=== PATIENT | male | born 1980 | race Caucasian/White ===

== ENCOUNTER 2017-06-09 01:11 | Emergency (ER) | payer OTHER ==
[2017-06-09] MEDS ORDERED: METOCLOPRAMIDE HCL INJ/PF 10 MG/2 ML SDV IV ONE (02:23)
[2017-06-09] MEDS ORDERED: MORPHINE SULFATE 10 MG/ML INJ ONE (02:23)
[2017-06-09] MEDS ORDERED: ONDANSETRON HCL INJ/PF 4 MG/2 ML SDV ONE (02:23)
[2017-06-09] MEDS ORDERED: FAMOTIDINE INJ/PF 20 MG/2 ML SDV IV ONE (02:23)
[2017-06-09] MEDS ORDERED: METOCLOPRAMIDE HCL INJ/PF 10 MG/2 ML SDV ONE (02:24)
[2017-06-09] MEDS ORDERED: NORMAL SALINE 1000 ML 1,000 ML IV ONE ×2 (02:25→02:59)
[2017-06-09] MEDS ORDERED: MORPHINE SULFATE 10 MG/ML INJ IV ONE (02:37)
[2017-06-09] MEDS ORDERED: ONDANSETRON HCL INJ/PF 4 MG/2 ML SDV IV ONE (02:37)
[2017-06-09 02:40] LABS: ABSOLUTE BASOPHILS # (AUTO) 0.1 10^3/uL (0.0-0.2); ABSOLUTE EOSINOPHILS # (AUTO) 0.2 10^3/uL (0.0-0.6); ABSOLUTE LYMPHOCYTES (AUTO) 2.6 10^3/uL (0.5-4.7); ABSOLUTE MONOCYTES (AUTO) 0.6 10^3/uL (0.1-1.4); ABSOLUTE NEUT (AUTO) 7.9 10^3/uL (1.7-8.2); BASOPHILS % (AUTO) 0.4 % (0-2); EOSINOPHILS % (AUTO) 2.2 % (0-6); HEMATOCRIT 42.2 % (37.9-51.0); HEMOGLOBIN 14.5 g/dL (13.5-17.0); LYMPHOCYTES % (AUTO) 22.7 % (13-45); MEAN CORPUSCULAR HEMOGLOBIN 29.3 pg (27.0-33.4); MEAN CORPUSCULAR HGB CONC 34.5 g/dL (32.0-36.0); MEAN CORPUSCULAR VOLUME 85 fl (80-97); PLATELET COUNT 264 10^3/uL (150-450); RED BLOOD COUNT 4.95 10^6/uL (4.35-5.55); RED CELL DISTRIBUTION WIDTH 12.6 % (11.5-14.0); SEGMENTED NEUTROPHILS % (AUTO) 69.7 % (42-78); TOTAL CELLS COUNTED % (AUTO) 100 %; WHITE BLOOD COUNT 11.4 10^3/uL (4.0-10.5)
--- NOTE | 2017-06-09 02:53 | ER Document Report ---
ED General - General Chief Complaint: Abdominal Pain Stated Complaint: ABDOMINAL PAIN Time Seen by Provider: 06/09/17 02:07 Mode of Arrival: Ambulatory Information source: Patient TRAVEL OUTSIDE OF THE [place] IN LAST 30 DAYS: No - HPI Notes: Patient is a 37-year-old male presents to the emergency department with report of a 1-1/2 month history of intermittent abdominal pain that doubles him over at times with associated nausea. The patient reports some constipation and nausea and is only vomited twice. The patient reports having a CT scan for the same pain 1 month ago which was negative and states that 2 weeks ago he had a ultrasound where he was told it was negative, but his regular practitioner could not find the full report. The patient reports no chest pain or shortness of breath or cough. The patient denies any hematemesis. He does report constipation and mild sensation of urinary retention. The patient states his abdominal pain is worse right upper quadrant but occasionally his left upper quadrant and sometimes is to the lower abdomen. The patient denies any recent medication changes, but he is on a Butrans patch for fibromyalgia. Patient is also on Ambien. Family history no known gallbladder disease. - Related Data Allergies/Adverse Reactions: No Known Allergies Allergy (Unverified 07/06/11 08:16) Past Medical History - General Information source: Patient - Social History Smoking Status: Never Smoker Chew tobacco use (# tins/day): No Frequency of alcohol use: None Drug Abuse: None Lives with: Family Family History: Reviewed & Not Pertinent Patient has suicidal ideation: No Patient has homicidal ideation: No Renal/ Medical History: Denies: Hx Peritoneal Dialysis - Immunizations Hx Diphtheria, Pertussis, Tetanus Vaccination: No Review of Systems - Review of Systems Notes: REVIEW OF SYSTEMS: CONSTITUTIONAL : Denies fever, chills, or sweats. EENT: Denies eye, ear, throat, or mouth pain or symptoms. Denies nasal or sinus congestion or discharge. Denies throat, tongue, or mouth swelling or difficulty swallowing. CARDIOVASCULAR: Denies chest pain. Denies palpitations or racing or irregular heart beat. Denies ankle edema. RESPIRATORY: Denies cough, cold, or chest congestion. Denies shortness of breath, difficulty breathing, or wheezing. GASTROINTESTINAL: Denies abdominal distention. Denies diarrhea. Denies blood in vomitus, stools, or per rectum. Denies black, tarry stools. GENITOURINARY: Denies difficulty urinating, painful urination, burning, frequency, blood in urine, or discharge. MUSCULOSKELETAL: Denies back or neck pain or stiffness. Denies joint pain or swelling. SKIN: Denies rash or lesions. HEMATOLOGIC : Denies easy bruising or bleeding. LYMPHATIC: Denies swollen, enlarged glands. NEUROLOGICAL: Denies confusion or altered mental status. Denies passing out or loss of consciousness. Denies dizziness or lightheadedness. Denies headache. Denies weakness or paralysis or loss of use of either side. Denies problems with gait or speech. Denies sensory loss, numbness, or tingling. Denies seizures. PSYCHIATRIC: Denies anxiety or stress. Denies depression, suicidal ideation, or homicidal ideation. ALL OTHER SYSTEMS REVIEWED AND NEGATIVE. Dictation was performed using [employer] voice recognition software Physical Exam - Vital signs Vitals: Temp Pulse Resp BP Pulse Ox 97.3 F 54 L 16 124/75 100 06/09/17 01:12 06/09/17 01:12 06/09/17 01:12 06/09/17 01:12 06/09/17 01:12 - Notes Notes: PHYSICAL EXAMINATION: GENERAL: Well-appearing, well-nourished and in no acute distress. HEAD: Atraumatic, normocephalic. EYES: Pupils equal round and reactive to light, extraocular movements intact, sclera anicteric, conjunctiva are normal. ENT: Nares patent, oropharynx clear without exudates. Moist mucous membranes. NECK: Normal range of motion, supple without lymphadenopathy LUNGS: Breath sounds clear to auscultation bilaterally and equal. No wheezes rales or rhonchi. HEART: Regular rate and rhythm without murmurs ABDOMEN: Slightly distended, diffusely tender, worse right upper quadrant region. No guarding, no rebound. No masses appreciated. Positive Marrero's. Musculoskeletal: Normal range of motion, no pitting or edema. No cyanosis. Pain through to the mid back region also noted. NEUROLOGICAL: Cranial nerves grossly intact. Normal speech, normal gait. Normal sensory, motor exams PSYCH: Normal mood, normal affect. SKIN: Warm, Dry, normal turgor, no rashes or lesions noted. Course - Re-evaluation Re-evalutation: 06/09/17 02:53 Patient was given normal saline bolus and was given IV Zofran, morphine, Reglan , Pepcid. Attempt was made to obtain old records from [facility] where he had his initial workup and other studies. 06/09/17 05:35 No evidence for hepatitis or pancreatitis or acute cholecystitis or urinary tract infection or GI bleed. Findings fit with a narcotic induced constipation with ileus versus early small bowel obstruction. The patient had adequate relief of his pain and nausea after medications. Repeat abdominal exam patient was nontender. Patient tolerated p.o. fluids and felt stable for discharge. Patient was given strict instructions to observe a liquid only diet and will be started on MiraLAX. He was told he may need a follow-up colonoscopy if symptoms persist. He was also told that he needed to return in case of persistent nausea or vomiting or severe pain or any fever. - Vital Signs Vital signs: Temp Pulse Resp BP Pulse Ox 97.3 F 54 L 16 124/75 100 06/09/17 01:12 06/09/17 01:12 06/09/17 01:12 06/09/17 01:12 06/09/17 01:12 - Laboratory Result Diagrams: 06/09/17 02:30 06/09/17 02:30 Laboratory results interpreted by me: 06/09/17 06/09/17 06/09/17 02:30 02:30 04:55 WBC 11.4 H BUN 23 H Urine Ketones TRACE H Discharge - Discharge Clinical Impression: Ileus Constipation Qualifiers: Constipation type: drug induced constipation Qualified Code(s): K59.03 - Drug induced constipation Vomiting Qualifiers: Vomiting type: unspecified Vomiting Intractability: non-intractable Nausea presence: with nausea Qualified Code(s): R11.2 - Nausea with vomiting, unspecified Adverse effect of narcotic Qualifiers: Encounter type: initial encounter Qualified Code(s): T40.605A - Adverse effect of unspecified narcotics, initial encounter Abdominal pain Qualifiers: Abdominal location: generalized Qualified Code(s): R10.84 - Generalized abdominal pain Condition: Stable Disposition: HOME, SELF-CARE Instructions: Bowel Obstruction ([facility]), Vomiting ([facility]), Constipation ([facility]) Additional Instructions: Drink plenty of fluids. Liquid only diet until bowels are working more appropriately. Return to the emergency department in case of persistent vomiting, worsening pain, any fever. If symptoms persist, you may need a colonoscopy. Consider cutting back on narcotic pain medications to control constipation and symptoms. Prescriptions: Ondansetron [Zofran Odt 4 mg Tablet] 1 tab PO Q8HP PRN #10 tab.rapdis PRN Reason: For Nausea/Vomiting Polyethylene Glycol 3350 [Miralax] 1 cap PO DAILY #527 powder Referrals: RUFUS RIVERA MD [Primary Care Provider] - 06/11/17
[2017-06-09 02:54] LABS: ALANINE AMINOTRANSFERASE 37 U/L (21-72); ALKALINE PHOSPHATASE 38 U/L (38-126); ANION GAP 11 (5-19); ASPARTATE AMINO TRANSFERASE 34 U/L (17-59); BILIRUBIN,DIRECT 0.4 mg/dL (0.0-0.4); BILIRUBIN,TOTAL 0.7 mg/dL (0.2-1.3); BLOOD UREA NITROGEN 23 mg/dL (7-20); CALCIUM 9.6 mg/dL (8.4-10.2); CARBON DIOXIDE 29 mmol/L (22-30); CHLORIDE 101 mmol/L (98-107); GLUCOSE 110 mg/dL (75-110); LIPASE 58.9 U/L (23-300); POTASSIUM 3.9 mmol/L (3.6-5.0); SODIUM 140.5 mmol/L (137-145); TOTAL PROTEIN 7.7 g/dL (6.3-8.2)
--- NOTE | 2017-06-09 03:38 | RADIOLOGY REPORT (SQ) ---
EXAM DESCRIPTION: CT ABDOMEN AND PELVIS WITH CONTRAST CLINICAL HISTORY: abd pain RUQ predominantly, vomiting COMPARISON: None Available. TECHNIQUE: CT of the abdomen and pelvis performed following IV administration of 89 mL of Isovue-370. Delayed images obtained. DLP: 903.75 mGycm FINDINGS: Lung Bases: The visualized lung bases are clear. Bones: No destructive bone lesions identified. Abdomen: Liver: The liver has normal size and density. No intrahepatic mass or biliary dilatation. Gallbladder: No calcified gallstones. Spleen, Pancreas, and Adrenal Glands: The spleen, pancreas, and adrenal glands are unremarkable. Kidneys: The kidneys have normal size and contour without evidence of solid mass or hydronephrosis. Vasculature: The aorta and IVC have normal caliber and position. The portal vein is patent. The proximal visceral and renal arteries are patent. Stomach: The stomach and duodenum have normal course. Other: No free intraperitoneal air. No free fluid or lymphadenopathy. Pelvis: Bladder: Urinary bladder is unremarkable. Bowel: Mildly prominent loops of small bowel with distally decompressed loops of small bowel. No well-defined transition point identified. Appendix: Normal appendix. Pelvis: Prostate is not enlarged. IMPRESSION: 1. Mildly dilated loops of small bowel with distally decompressed loops of ileum. No definite transition point identified. Differential considerations include ileus versus at least partial small bowel obstruction. Continued follow-up recommended. This exam was performed according to our departmental dose-optimization program, which includes automated exposure control, adjustment of the mA and/or kV according to patient size and/or use of iterative reconstruction technique.
[2017-06-09 05:16] LABS: APPEARANCE,URINE CLEAR; BILIRUBIN,URINE NEGATIVE (NEGATIVE); COLOR,URINE YELLOW; GLUCOSE, URINE NEGATIVE (NEGATIVE); KETONES,URINE TRACE mg/dL (NEGATIVE); LEUKOCYTE ESTERASE,URINE NEGATIVE (NEGATIVE); NITRITE,URINE NEGATIVE (NEGATIVE); PROTEIN,URINE NEGATIVE (NEGATIVE); URINE SPECIFIC GRAVITY 1.036; UROBILINOGEN,URINE NEGATIVE mg/dL (<2.0)
[2017-06-09 06:03] VITALS: BP 127/66
== END 2017-06-09 06:02 | disposition home or self-care (01) ==
LOC: ER 01:11
DX: K56.7 Ileus, unspecified (principal); K59.03 Drug induced constipation; R11.2 Nausea with vomiting, unspecified; T40.605A Adverse effect of unspecified narcotics, initial encounter; R10.84 Generalized abdominal pain; K59.00 Constipation, unspecified; R10.11 Right upper quadrant pain; R10.12 Left upper quadrant pain; R10.30 Lower abdominal pain, unspecified; Z79.899 Other long term (current) drug therapy
CPT/HCPCS: 99284; 96361; 96374; 96375; 36415; 83690; 85025; 80053; 81001; 74177; J2765; J2270; J2405; J7030; S0028

== ENCOUNTER 2017-08-19 01:38 | Emergency (ER) | payer OTHER ==
--- NOTE | 2017-08-19 02:00 | RADIOLOGY REPORT (SQ) ---
EXAM DESCRIPTION: XR FINGERS COMPLETED DATE/TME: 08/19/2017 00:00 CLINICAL HISTORY: 37 years, Male, Pain s/p injury COMPARISON: None. FINDINGS: Single view of the hand and 2 views of the right second digit. No acute fracture or dislocation. No radiopaque foreign body identified. Normal osseous mineralization. IMPRESSION: No acute fracture or dislocation. 2011 [facility] [employer]- All Rights Reserved
[2017-08-19 02:07] VITALS: BP 121/74
--- NOTE | 2017-08-19 02:57 | ER Document Report ---
ED General - General Chief Complaint: Finger Injury Stated Complaint: FINGER INJURY Time Seen by Provider: 08/19/17 02:40 Notes: Patient is a 29-year-old male who presents with complaint of a cut the dorsum of his right second digit after a close car door. He initially had pain but says he no longer has pain. X-ray was ordered in triage and is negative. He says he is has had a tetanus shot within the last 5 years. He has no chronic medical problems and is otherwise healthy. He has no other complaints at this time. TRAVEL OUTSIDE OF THE [place] IN LAST 30 DAYS: No - Related Data Allergies/Adverse Reactions: No Known Allergies Allergy (Unverified 07/06/11 08:16) Past Medical History - Social History Smoking Status: Unknown if Ever Smoked Frequency of alcohol use: None Drug Abuse: None Family History: Reviewed & Not Pertinent Patient has suicidal ideation: No Patient has homicidal ideation: No Renal/ Medical History: Denies: Hx Peritoneal Dialysis - Immunizations Hx Diphtheria, Pertussis, Tetanus Vaccination: No Review of Systems - Review of Systems Notes: My Normal Review Basic REVIEW OF SYSTEMS: CONSTITUTIONAL : Denies fever, chills, or sweats. Denies recent illness. MUSCULOSKELETAL: Right second digit laceration. SKIN: Denies rash or skin lesions. HEMATOLOGIC : Denies easy bruising or bleeding. LYMPHATIC: Denies swollen, enlarged glands. NEUROLOGICAL: Denies sensory or motor loss. ALL OTHER SYSTEMS REVIEWED AND NEGATIVE. Physical Exam - Vital signs Vitals: Temp Pulse Resp BP Pulse Ox 98.0 F 62 18 121/74 100 08/19/17 02:05 08/19/17 02:05 08/19/17 02:05 08/19/17 02:05 08/19/17 02:05 - Notes Notes: General Appearance: Well nourished, alert, cooperative, no acute distress, no obvious discomfort. Well-appearing. Vitals: reviewed, See vital signs table. Extremities: strength 5/5 in all extremities, good pulses in all extremities, good capillary refill. Patient does have a laceration is proximately 2 cm in length on the dorsum of the right second digit. No active bleeding at this time. No redness or swelling around the area. Distal sensation is intact. Patient is able flex the finger but has some pain in doing so and therefore flexion is limited. Patient is able have the finger extended. Laceration is over the extensor surface. Skin: warm, dry, appropriate color, no rash Neuro: speech clear, oriented x 3, normal affect, responds appropriately to questions. Course - Re-evaluation Re-evalutation: 08/19/17 03:02 I placed Dermabond over the cut after cleaning it with peroxide. Patient tolerated this well. He has no complaints looks well. Triage note mentions patient is worried about some numbness in his finger. On my exam patient had good distal sensation throughout the finger. Informed patient to keep the finger covered when working. I informed him otherwise keep it open to air. I encouraged her return to ER immediately if has any redness or swelling or signs of infection. Patient agrees with plan will be discharged home. Dictation of this chart was performed using voice recognition software; therefore, there may be some unintended grammatical errors. - Vital Signs Vital signs: Temp Pulse Resp BP Pulse Ox 98.0 F 62 18 121/74 100 08/19/17 02:05 08/19/17 02:05 08/19/17 02:05 08/19/17 02:05 08/19/17 02:05 Procedures - Laceration/Wound Repair right 2nd digit Wound length (cm): 2 Wound's Depth, Shape: Linear Laceration pre-procedure: Other - peroxide Wound explored: Clean Wound Repaired With: Dermabond Discharge - Discharge Clinical Impression: Finger laceration Qualifiers: Encounter type: initial encounter Finger: index finger Damage to nail status: without damage Foreign body presence: without foreign body Laterality: right Qualified Code(s): S61.210A - Laceration without foreign body of right index finger without damage to nail, initial encounter Condition: Good Disposition: HOME, SELF-CARE Additional Instructions: Please wait 24 hours before cleaning wound with soap and water. Please than just gently clean with soap and water twice a day. Please return to the ER immediately if you develop redness or swelling in the finger, fevers, or feel unwell. Referrals: RUFUS RIVERA MD [Primary Care Provider] - Follow up as needed
== END 2017-08-19 03:15 | disposition home or self-care (01) ==
LOC: ER 01:38
DX: S61.210A Laceration without foreign body of right index finger without damage to nail, initial encounter (principal); R20.0 Anesthesia of skin; W23.0XXA Caught, crushed, jammed, or pinched between moving objects, initial encounter
CPT/HCPCS: 99283

== ENCOUNTER 2017-11-03 20:53 | Emergency (ER) | payer OTHER ==
[2017-11-03] MEDS ORDERED: NORMAL SALINE 1000 ML 1,000 ML IV ONE (22:09)
[2017-11-03] MEDS ORDERED: ONDANSETRON 4 MG TAB.RAPDIS PO ONE (22:09)
--- NOTE | 2017-11-03 22:11 | ER Document Report ---
ED Medical Screen (RME) - General Chief Complaint: Abdominal Pain Stated Complaint: ABDOMINAL PAIN Time Seen by Provider: 11/03/17 22:05 Mode of Arrival: Ambulatory Information source: Patient Notes: Patient is a 37-year-old male who presents with chief complaint of abdominal pain with vomiting onset about 6:00 tonight after eating dinner. Patient denies any history of any abdominal surgeries. Patient actively vomiting during triage. Exam: Generalized tenderness to palpation to the entire abdomen. I have greeted and performed a rapid initial assessment of this patient. A comprehensive ED assessment and evaluation of the patient, analysis of test results and completion of the medical decision making process will be conducted by additional ED providers. Dictation of this chart was performed using voice recognition software; therefore, there may be some unintended grammatical errors. TRAVEL OUTSIDE OF THE [place] IN LAST 30 DAYS: No - Related Data Allergies/Adverse Reactions: No Known Allergies Allergy (Unverified 07/06/11 08:16) Past Medical History - Social History Frequency of alcohol use: None Drug Abuse: None Renal/ Medical History: Denies: Hx Peritoneal Dialysis - Immunizations Hx Diphtheria, Pertussis, Tetanus Vaccination: No Physical Exam - Vital signs Vitals: Temp Pulse BP Pulse Ox 97.6 F 55 L 105/59 L 100 11/03/17 21:01 11/03/17 21:01 11/03/17 21:01 11/03/17 21:01 Course - Vital Signs Vital signs: Temp Pulse Resp BP Pulse Ox 97.6 F 55 L 105/59 L 100 11/03/17 21:01 11/03/17 21:01 11/03/17 21:01 11/03/17 21:01 Doctor's Discharge - Discharge Referrals: RUFUS RIVERA MD [Primary Care Provider] - Follow up as needed
[2017-11-03 22:39] LABS: ABSOLUTE EOSINOPHILS # (AUTO) 0.2 10^3/uL (0.0-0.6); ABSOLUTE LYMPHOCYTES (AUTO) 1.3 10^3/uL (0.5-4.7); ABSOLUTE MONOCYTES (AUTO) 0.5 10^3/uL (0.1-1.4); ABSOLUTE NEUT (AUTO) 10.1 10^3/uL (1.7-8.2); BASOPHILS % (AUTO) 0.1 % (0-2); EOSINOPHILS % (AUTO) 1.5 % (0-6); HEMATOCRIT 39.3 % (37.9-51.0); HEMOGLOBIN 13.4 g/dL (13.5-17.0); LYMPHOCYTES % (AUTO) 10.4 % (13-45); MEAN CORPUSCULAR HEMOGLOBIN 29.5 pg (27.0-33.4); MEAN CORPUSCULAR HGB CONC 34.1 g/dL (32.0-36.0); MEAN CORPUSCULAR VOLUME 87 fl (80-97); MONOCYTES % (AUTO) 4.1 % (3-13); PLATELET COUNT 241 10^3/uL (150-450); RED BLOOD COUNT 4.54 10^6/uL (4.35-5.55); RED CELL DISTRIBUTION WIDTH 13.3 % (11.5-14.0); SEGMENTED NEUTROPHILS % (AUTO) 83.9 % (42-78); TOTAL CELLS COUNTED % (AUTO) 100 %; WHITE BLOOD COUNT 12.1 10^3/uL (4.0-10.5)
[2017-11-03 23:04] LABS: ALANINE AMINOTRANSFERASE 44 U/L (21-72); ALBUMIN 3.8 g/dL (3.5-5.0); ALKALINE PHOSPHATASE 32 U/L (38-126); ANION GAP 7 (5-19); ASPARTATE AMINO TRANSFERASE 40 U/L (17-59); BILIRUBIN,DIRECT 0.2 mg/dL (0.0-0.4); BILIRUBIN,TOTAL 0.4 mg/dL (0.2-1.3); BLOOD UREA NITROGEN 19 mg/dL (7-20); CALCIUM 8.8 mg/dL (8.4-10.2); CARBON DIOXIDE 31 mmol/L (22-30); CHLORIDE 105 mmol/L (98-107); GLUCOSE 107 mg/dL (75-110); LIPASE 43.8 U/L (23-300); POTASSIUM 4.2 mmol/L (3.6-5.0); SODIUM 142.9 mmol/L (137-145); TOTAL PROTEIN 6.3 g/dL (6.3-8.2)
[2017-11-04 00:17] LABS: APPEARANCE,URINE CLEAR; BILIRUBIN,URINE NEGATIVE (NEGATIVE); COLOR,URINE YELLOW; GLUCOSE, URINE NEGATIVE (NEGATIVE); KETONES,URINE NEGATIVE (NEGATIVE); LEUKOCYTE ESTERASE,URINE NEGATIVE (NEGATIVE); NITRITE,URINE NEGATIVE (NEGATIVE); PROTEIN,URINE NEGATIVE (NEGATIVE); URINE SPECIFIC GRAVITY 1.024
--- NOTE | 2017-11-04 00:24 | ER Document Report ---
ED General - General Mode of Arrival: Ambulatory Information source: Patient TRAVEL OUTSIDE OF THE [place] IN LAST 30 DAYS: No <IAN CHACON - Last Filed: 11/04/17 04:35> <LEMUEL PEARL - Last Filed: 11/04/17 04:56> - General Chief Complaint: Abdominal Pain Stated Complaint: ABDOMINAL PAIN Time Seen by Provider: 11/03/17 22:05 Notes: Patient is a 37 year old male presenting to the emergency department complaining of abdominal pain onset yesterday. Patient states he was looking for his brother all day today and did not eat anything for most of the day. He states when he was able to eat, he indulged in a copious amount of food further stating he feels this caused his abdominal pain. He states he has a history of constipation so he took an probiotic and MiraLax and his pain significantly increased shortly after taking the MiraLax. At bedside, patient states he feels a lot better after having vomited once. Patient denies diarrhea or dysuria. Patient states he did have a small bowel movement yesterday morning. (IAN CHACON) - Related Data Allergies/Adverse Reactions: No Known Allergies Allergy (Unverified 07/06/11 08:16) Past Medical History - General Information source: Patient - Social History Smoking Status: Never Smoker Frequency of alcohol use: None Drug Abuse: None Family History: Reviewed & Not Pertinent Patient has suicidal ideation: No Patient has homicidal ideation: No Renal/ Medical History: Denies: Hx Peritoneal Dialysis - Immunizations Hx Diphtheria, Pertussis, Tetanus Vaccination: No <IAN CHACON - Last Filed: 11/04/17 04:35> Review of Systems - Review of Systems Constitutional: No symptoms reported EENT: No symptoms reported Cardiovascular: No symptoms reported Respiratory: No symptoms reported Gastrointestinal: See HPI, Abdominal pain, Vomiting Genitourinary: No symptoms reported Male Genitourinary: No symptoms reported Musculoskeletal: No symptoms reported Skin: No symptoms reported Hematologic/Lymphatic: No symptoms reported Neurological/Psychological: No symptoms reported -: Yes All other systems reviewed and negative <IAN CHACON - Last Filed: 11/04/17 04:35> Physical Exam - Vital signs Interpretation: Normal - General General appearance: Alert In distress: Mild - dry heaving - HEENT Head: Normocephalic, Atraumatic Eyes: Normal Pupils: PERRL Mucous membranes: Dry - Respiratory Respiratory status: No respiratory distress Chest status: Nontender Breath sounds: Normal Chest palpation: Normal - Cardiovascular Rhythm: Regular Heart sounds: Normal auscultation Murmur: No - Abdominal Inspection: Normal Distension: No distension Bowel sounds: Normal Tenderness: Tender - mild epigastric Organomegaly: No organomegaly - Back Back: Normal, Nontender - Extremities General upper extremity: Normal inspection, Nontender, Normal color, Normal ROM , Normal temperature General lower extremity: Normal inspection, Nontender, Normal color, Normal ROM , Normal temperature, Normal weight bearing. No: Malinda's sign - Neurological Neuro grossly intact: Yes Cognition: Normal Orientation: AAOx4 Janis Coma Scale Eye Opening: Spontaneous [place] Coma Scale Verbal: Oriented Janis Coma Scale Motor: Obeys Commands Janis Coma Scale Total: 15 Speech: Normal Motor strength normal: LUE, RUE, LLE, RLE Sensory: Normal - Psychological Associated symptoms: Normal affect, Normal mood - Skin Skin Temperature: Warm Skin Moisture: Dry Skin Color: Normal <LEMUEL PEARL - Last Filed: 11/04/17 04:56> - Vital signs Vitals: Temp Pulse BP Pulse Ox 97.6 F 55 L 105/59 L 100 11/03/17 21:01 11/03/17 21:01 11/03/17 21:01 11/03/17 21:01 Course - Laboratory Result Diagrams: 11/03/17 22:30 11/03/17 22:30 <IAN CHACON - Last Filed: 11/04/17 04:35> - Laboratory Result Diagrams: 11/03/17 22:30 11/03/17 22:30 <LEMUEL PEARL - Last Filed: 11/04/17 04:56> - Re-evaluation Re-evalutation: 11/04/17 01:00 Passed po konrad Patient is a 37-year-old male who comes in complaining of upper abdominal pain and vomiting after he states he ate too much. Feels better after Zofran and fluids. No further vomiting. No pain. Blood work within normal limits. Past p.o. challenge would like to go home. States that he has Zofran at home already and does not need anymore. He is to follow-up with his doctor this week and return if there are any worsening or concerning symptoms. Stable for discharge. (LEMUEL PEARL) - Vital Signs Vital signs: Temp Pulse Resp BP Pulse Ox 98.6 F 58 L 14 101/52 L 99 11/04/17 01:03 11/04/17 01:03 11/04/17 01:03 11/04/17 01:03 11/04/17 01:03 - Laboratory Laboratory results interpreted by me: 11/03/17 11/03/17 11/03/17 22:30 22:30 23:45 WBC 12.1 H Hgb 13.4 L Seg Neutrophils % 83.9 H Lymphocytes % 10.4 L Absolute Neutrophils 10.1 H Carbon Dioxide 31 H Alkaline Phosphatase 32 L Urine Urobilinogen 2.0 H Discharge <IAN CHACON - Last Filed: 11/04/17 04:35> <LEMUEL PEARL - Last Filed: 11/04/17 04:56> - Discharge Clinical Impression: Epigastric pain Vomiting Qualifiers: Vomiting type: unspecified Vomiting Intractability: non-intractable Nausea presence: with nausea Qualified Code(s): R11.2 - Nausea with vomiting, unspecified Condition: Stable Disposition: HOME, SELF-CARE Instructions: Abdominal Pain ([facility]), Vomiting ([facility]) Additional Instructions: Please follow-up with your doctor regarding her symptoms. Return if you have any worsening or concerning symptoms. Referrals: RUFUS RIVERA MD [Primary Care Provider] - Follow up in 3-5 days Scribe Attestation: 11/04/17 04:56 I personally performed the services described in the documentation, reviewed and edited the documentation which was dictated to the scribe in my presence, and it accurately records my words and actions. (LEMUEL PEARL) Scribe Documentation - Scribe Written by Radha:: Radha Yost, 11/04/2017 02:03 acting as scribe for :: Bk <IAN CHCAON - Last Filed: 11/04/17 04:35>
[2017-11-04 01:08] VITALS: BP 101/52
== END 2017-11-04 01:08 | disposition home or self-care (01) ==
LOC: ER 20:53
DX: R10.13 Epigastric pain (principal); R11.2 Nausea with vomiting, unspecified; R10.816 Epigastric abdominal tenderness; Z87.19 Personal history of other diseases of the digestive system
CPT/HCPCS: 99283; 96360; 36415; 83690; 85025; 80053; 81001; S0119; J7030

== ENCOUNTER 2019-08-10 04:57 | Emergency (ER) | payer OTHER ==
[2019-08-10] MEDS ORDERED: NORMAL SALINE 1000 ML 1,000 ML IV ONE (05:49)
[2019-08-10 06:10] LABS: ABSOLUTE EOSINOPHILS # (AUTO) 0.3 10^3/uL (0.0-0.6); ABSOLUTE MONOCYTES (AUTO) 0.5 10^3/uL (0.1-1.4); ABSOLUTE NEUT (AUTO) 2.3 10^3/uL (1.7-8.2); BASOPHILS % (AUTO) 0.5 % (0-2); EOSINOPHILS % (AUTO) 5.5 % (0-6); HEMATOCRIT 36.6 % (37.9-51.0); LYMPHOCYTES % (AUTO) 38.8 % (13-45); MEAN CORPUSCULAR HGB CONC 35.5 g/dL (32.0-36.0); MEAN CORPUSCULAR VOLUME 88 fl (80-97); MONOCYTES % (AUTO) 10.4 % (3-13); PLATELET COUNT 191 10^3/uL (150-450); RED BLOOD COUNT 4.18 10^6/uL (4.35-5.55); RED CELL DISTRIBUTION WIDTH 12.7 % (11.5-14.0); SEGMENTED NEUTROPHILS % (AUTO) 44.8 % (42-78); TOTAL CELLS COUNTED % (AUTO) 100 %; WHITE BLOOD COUNT 5.1 10^3/uL (4.0-10.5)
[2019-08-10 06:16] LABS: ALBUMIN 3.8 g/dL (3.5-5.0); ALKALINE PHOSPHATASE 42 U/L (38-126); ANION GAP 7 (5-19); ASPARTATE AMINO TRANSFERASE 27 U/L (17-59); BILIRUBIN,TOTAL 0.4 mg/dL (0.2-1.3); BLOOD UREA NITROGEN 21 mg/dL (7-20); CARBON DIOXIDE 26 mmol/L (22-30); CHLORIDE 105 mmol/L (98-107); CREATINE KINASE 101 U/L (55-170); GLUCOSE 115 mg/dL (75-110); PHOSPHORUS 5.1 mg/dL (2.5-4.5)
--- NOTE | 2019-08-10 06:19 | ER Document Report ---
ED Medical Screen (RME) - General Chief Complaint: Weakness Stated Complaint: LOW HEART RATE [facility] - Follow up as needed TRAVEL OUTSIDE OF THE [place] IN LAST 30 DAYS: No - HPI Notes: 08/10/19 06:15 39-year-old male no significant past medical history presents with syncope just prior to arrival. Patient got up from sleep and had abdominal discomfort and went to bathroom trying to have a bowel movement did not feel better went back to bed and then became lightheaded and lost posture. No trauma. Patient has had several episodes of this in the past approximately once every year or so and has never been given any specific diagnosis. Patient was hypotensive and bradycardic with EMS which improved with fluids. Patient denies any recent illness, fever, shortness of breath, chest pain, vomiting, bowel symptoms, urinary symptoms, drug use, alcohol use. - Related Data Allergies/Adverse Reactions: No Known Allergies Allergy (Unverified 07/06/11 08:16) Past Medical History - General Information source: Patient - Social History Chew tobacco use (# tins/day): No Frequency of alcohol use: None Drug Abuse: None Renal/ Medical History: Denies: Hx Peritoneal Dialysis - Immunizations Hx Diphtheria, Pertussis, Tetanus Vaccination: No Physical Exam - Vital signs Vitals: Resp 14 08/10/19 05:01 - Notes Notes: PHYSICAL EXAMINATION: GENERAL: Well-appearing, well-nourished and in no acute distress. HEAD: Atraumatic, normocephalic. EYES: Pupils equal round and appropriate constriction, sclera anicteric, conjunctiva are normal. ENT: nares patent, moist mucous membranes. NECK: Normal range of motion, supple without lymphadenopathy LUNGS: Breath sounds clear to auscultation bilaterally and equal. No wheezes rales or rhonchi. HEART: Regular rate and rhythm without murmurs ABDOMEN: Soft, nontender, no guarding, no masses, no CVAT EXTREMITIES: Normal range of motion, no pitting or edema. No cyanosis. NEUROLOGICAL: Awake, alert, conversing appropriately, moves all extremities spontaneously. PSYCH: Normal mood, normal affect. SKIN: Warm, Dry, normal turgor, no rashes or lesions noted. Course - Re-evaluation Re-evalutation: 08/10/19 06:17 I have greeted and performed a rapid initial assessment of this patient. A comprehensive ED assessment and evaluation of the patient, analysis of test results and completion of medical decision making process will be conducted by an additional ED providers. - Vital Signs Vital signs: Temp Pulse Resp BP Pulse Ox 97.0 F 15 89/63 L 100 08/10/19 05:46 08/10/19 05:30 08/10/19 05:30 08/10/19 05:30 - Laboratory Result Diagrams: 08/10/19 05:05 08/10/19 05:05 Laboratory results interpreted by me: 08/10/19 05:05 RBC 4.18 L Hgb 13.0 L Hct 36.6 L - EKG Interpretation by Me Additional EKG results interpreted by me: 08/10/19 06:18 Heart rate 68, no significant ST elevations or depressions, no significant T wave inversions, QTc 456 Doctor's Discharge - Discharge [facility]errals: [facility] [[facility] - Follow up as needed
--- NOTE | 2019-08-10 07:19 | RADIOLOGY REPORT (SQ) ---
EXAM DESCRIPTION: XR CHEST 1 VIEW COMPLETED DATE/TME: 08/10/2019 05:50 CLINICAL HISTORY: 39 years Male, syncope hypotension COMPARISON: None. NUMBER OF VIEWS/TECHNIQUE: 1/AP FINDINGS: Adequate lung volume, clear parenchyma, normal cardiac silhouette, and intact bony thorax. IMPRESSION: No acute cardiopulmonary findings.
[2019-08-10 08:06] VITALS: BP 107/85
--- NOTE | 2019-08-10 11:33 | ER Document Report ---
Entered by GERARD JERNIGAN SCRIBE 08/10/19 0734 Acting as scribe for:KAREEM WHALEN MD ED Cardiac - General Chief Complaint: Weakness Stated Complaint: LOW HEART RATE Time Seen by Provider: 08/10/19 07:09 Primary Care Provider: [facility] [Primary Care Provider] - 08/10/19 Mode of Arrival: Ambulatory Information source: Patient Notes: This 39 year old male patient presents to the emergency department today with complaint of a syncopal event that occurred prior to arrival today. Patient states that every few years he has a syncopal event similar to this. Patient also mentions throat discomfort which didn't start until after arriving here. Patient also mentions that after the syncopal event he developed abdominal cramping with multiple bowel movements, one being diarrhea. Patient reports that he had gotten out of bed to go to the bathroom, he was playing in his headset, and the next thing he remembers is waking up on the floo r. Patient states he was aware that he was about to pass out but he was not aware that he "knocked everything over on the way down". When EMS arrived on scene the patient had a heart rate of 24, he was pale and diaphoretic. 1 mg of atropine was pushed prior to arrival here. Patient requests that [facility] and [facility]. TRAVEL OUTSIDE OF THE [place] IN LAST 30 DAYS: No - Related Data Allergies/Adverse Reactions: No Known Allergies Allergy (Unverified 07/06/11 08:16) Past Medical History - General Information source: Patient - Social History Smoking Status: Former Smoker - quit in 2010 Cigarette use (# per day): No Chew tobacco use (# tins/day): No Frequency of alcohol use: None Drug Abuse: None Lives with: Alone Family History: Reviewed & Not Pertinent Patient has homicidal ideation: No - Medical History Medical History: Negative Surgical Hx: Negative - Immunizations Hx Diphtheria, Pertussis, Tetanus Vaccination: No Review of Systems - Review of Systems Constitutional: See HPI, Diaphoresis EENT: See HPI, Throat pain Cardiovascular: See HPI, Syncope Respiratory: No symptoms reported Gastrointestinal: See HPI, Abdominal pain, Diarrhea Genitourinary: No symptoms reported Male Genitourinary: No symptoms reported Musculoskeletal: No symptoms reported Skin: No symptoms reported Hematologic/Lymphatic: No symptoms reported Neurological/Psychological: No symptoms reported -: Yes All other systems reviewed and negative Physical Exam - Vital signs Vitals: Resp 14 08/10/19 05:01 - Notes Notes: Physical Exam: General: Alert, appears well. HEENT: Normocephalic. Atraumatic. PERRL. Extraocular movements intact. No posterior oropharynx erythema or exudate, airway is patent. Neck: Supple. Non-tender. Respiratory: No respiratory distress. Clear and equal breath sounds bilaterally. Cardiovascular: Heart rate between 46-52. Normal rhythm. Abdominal: Normal Inspection. Non-tender. No distension. Normal Bowel Sounds. Back: No gross abnormalities. Extremities: Moves all four extremities. Upper extremities: Normal inspection. Normal ROM. Lower extremities: Normal inspection. No edema. Normal ROM. Neurological: Normal cognition. AAOx4. Normal speech. Psychological: Normal affect. Normal Mood. Skin: Warm. Dry. Normal color. Course - Vital Signs Vital signs: Temp Pulse Resp BP Pulse Ox 98.0 F 13 107/85 100 08/10/19 08:01 08/10/19 08:00 08/10/19 08:00 08/10/19 08:01 - Laboratory Result Diagrams: 08/10/19 05:05 08/10/19 05:05 Laboratory results interpreted by me: 08/10/19 08/10/19 08/10/19 05:05 05:05 05:05 RBC 4.18 L Hgb 13.0 L Hct 36.6 L BUN 21 H Glucose 115 H Phosphorus 5.1 H Total Protein 6.0 L TSH 5.69 H Discharge - Discharge Clinical Impression: Syncope and collapse, Bradycardia with less than 30 beats per minute Condition: Stable Disposition: HOME, SELF-CARE Additional Instructions: Syncopal Episode Syncope (fainting or near-fainting) can occur from many different health problems. Or it can be a simple fainting spell requiring no treatment. It is safe for you to go home, but further evaluation will likely be necessary. Your work-up may include tests for internal bleeding, heart disease, medication problems, or near-strokes. Tests are not always required, however, depending on the nature of your problem. The warning signs of an impending faint include: dizziness, lightheadedness, nausea, hot flashes, tingling, and weakness. If this happens, lay down and put your feet up, then wait until all of these symptoms have passed before standing up again. If these episodes become recurrent, or if you develop chest pain, heart palpitations, mental confusion, blurred vision, or headache, then you should call the physician, or go to the emergency room. Your syncope and collapse was most likely due to extreme bradycardia with low blood pressure. Call the [facility] today to report this episode. Tell them that when the paramedics arrived, they found you pale, diaphoretic, with a heart rate of 24. You were given atropine 1 mg IV and IV fluids for your extreme bradycardia and low blood pressure. RETURN TO THE EMERGENCY ROOM IF ANY NEW OR WORSENING SYMPTOMS. [facility]errals: [facility] [[facility]] - 08/10/19 I personally performed the services described in the documentation, reviewed and edited the documentation which was dictated to the scribe in my presence, and it accurately records my words and actions.
--- NOTE | 2019-08-10 23:33 | EKG REPORT ---
SEVERITY:- NORMAL ECG - SINUS RHYTHM : Confirmed by: Saurabh Wismean 10-Aug-2019 23:32:38
== END 2019-08-10 08:09 | disposition home or self-care (01) ==
LOC: ER 04:57
DX: R00.1 Bradycardia, unspecified (principal); R55 Syncope and collapse; R09.89 Other specified symptoms and signs involving the circulatory and respiratory systems; R10.9 Unspecified abdominal pain; R19.7 Diarrhea, unspecified; R61 Generalized hyperhidrosis; Z87.891 Personal history of nicotine dependence
CPT/HCPCS: 93005; 99284; 96360; 36415; 82550; 83735; 84100; 84443; 85025; 80053; 84484; 71045; 93010; J7030